=== PATIENT | female | born 1990 | race Caucasian/White ===

== ENCOUNTER 2018-12-31 09:32 | Inpatient (IN) | payer OTHER ==
[2018-12-30 14:34] LABS: RPR Titer ND
[2018-12-30 14:38] LABS: Urine Appearance CLEAR; Urine Bilirubin NEGATIVE (NEG); Urine Blood NEGATIVE (NEG); Urine Color YELLOW; Urine Glucose NEGATIVE (NEG); Urine Protein NEGATIVE (NEG)
[2018-12-30 14:47] LABS: Absolute Lymphocytes (CBC) 1.6 K/uL (0.7-4.9); Absolute Monocytes 0.6 K/uL (0.1-1.3); Absolute Neutrophil 7.4 K/uL (1.8-8.0); Basophils % 0.1 % (0-1.3); Eosinophils % 0.7 % (0-4.4); Hematocrit 36.4 % (36.0-45.0); Lymphocytes % 16.9 % (15.3-44.8); MPV 9.6 fL (7.6-11.3); Monocytes % 5.9 % (3.3-12.3); RBC Red Blood Cell Count 4.17 M/uL (3.86-4.86)
[2018-12-30 15:08] LABS: BUN Blood Urea Nitrogen 4 mg/dL (7-18); Bicarbonate 23 mmol/L (21-32); Glucose Level 88 mg/dL (74-106); Potassium 3.6 mmol/L (3.5-5.1); Sodium Level 141 mmol/L (136-145)
[2018-12-30 16:09] LABS: Urine Amorphous Sediment 1+ /HPF (NONE SEEN); Urine Bacteria 20-50 /HPF (<20); Urine Culture Reflex Order REFLEXED; Urine RBC <5 /HPF (NONE SEEN)
--- NOTE | 2018-12-30 21:12 | P.OBGYNHP ---
Certification for Inpatient Patient admitted to: Inpatient With expected LOS: >2 Midnights Patient will require the following post-hospital care: None Practitioner: I am a practitioner with admitting privileges, knowledge of patient current condition, hospital course, and medical plan of care. Services: Services provided to patient in accordance with Admission requirements found in Title 42 Section 412.3 of the Code of Federal Regulations Patient History Date of Service: 01/03/19 Reason for admission: Primary section due to breech presentation History of Present Illness: Patient is a 28 y/o who presents at 39 weeks gestation for scheduled primary section due to breech presentation. Patient has obtained care beginning at 9 weeks gestation. care has been complicated by a h/o preeclampsia in prior and a h/o of bariatic surgery. Patient has been consulted by SUDARSHAN in this . Recommendations were to continue to 39 weeks gestation. Last ultrasound was done here at [facility] on 12/13/17 - breech presentation, EFW 5 lb 11 oz, NUPUR 17cm, anterior placenta. I again did an ultrasound on the patient in the office at her pre-op visit to confirm breech presentation prior to scheduling surgery. See record for further information. Allergies No Known Allergies Allergy (Verified 06/15/16 10:48) Home Medications: Ferrous Sulfate [Iron] 325 mg PO DAILY 08/14/16 Pnv Cmb#95/Ferrous Fumarate/FA [ Tablet] 1 each PO DAILY 08/14/16 Codeine/APAP [Tylenol W/Codeine #3 tab] 1 tab PO Q6HP PRN #24 tab 01/02/19 - Past Medical/Surgical History Diabetic: No -: Tonsillectomy -: Gastric Bypass - Family History Father -: Hypertension Mother -: Diabetes - Social History Alcohol use: No CD- Drugs: No Caffeine use: No Review of Systems 10-point ROS is otherwise unremarkable Physical Examination - Vital Signs Temperature: 98.0 F Blood Pressure: 110/81 Pulse: 89 Respirations: 18 Pulse Ox (%): 100 - General General: Alert and in no apparent distress HEENT: Atraumatic Neck: Supple Respiratory: Normal air movement Cardiovascular: No edema Breasts: Normal configuration, Normal contours Gastrointestinal: Other (obese, gravid) Musculoskeletal: No clubbing, No swelling Integumentary: No rashes, No breakdown Neurological: Normal gait, Normal speech - Female Pelvic External genitalia: Normal, No lesions, No masses Vagina: Normal, [place], Moist Uterus: Gravid Adnexa: Unable to evaluate - Obstetrics heart rate tracing: Category 2 Amniotic membrane: Intact Laboratory Data (last 24 hrs) 12/30/18 14:18: Sodium 141, Potassium 3.6, BUN 4 L, Creatinine 0.46 L, Glucose 88 12/30/18 14:18: WBC 9.7, Hgb 12.1, Hct 36.4, Plt Count 257 Assessment and Plan - Plan Patient is a 28 y/o who presents at 39 weeks gestation for scheduled primary section due to breech presentation. Routine preoperative medications given to the patient. Following surgery routine postoperative orders will be placed. Patient be placed on a clear liquid diet and advance to regular as tolerated. Veras catheter will be kept in place for 12 hr. CBC tomorrow morning. Pain management will be provided. - Advance Directives Does patient have a Living Will: No Does patient have a Durable POA for Healthcare: No
[~2018-12-31 09:32] MED LIST: CEFAZOLIN/SWI 2gm 2 GM/20 ML SYR IVP SCH
[2018-12-31] MEDS ORDERED: Ringers Lactate 1,000 ML IV PRN (09:33)
[2018-12-31] MEDS ORDERED: FAMOTIDINE 20 MG/2 ML VIAL IV ONE (09:34)
[2018-12-31] MEDS ORDERED: NA CIT/CITRIC AC 30 ML ORAL UDC PO ONE (09:34)
--- OUTSIDE RECORDS SUMMARY | 2018-12-31 09:37 | XMS REPORT ---
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
--- OUTSIDE RECORDS SUMMARY | 2018-12-31 09:37 | XMS REPORT ---
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843 Active complicating , third trimester Problem Bariatric surgery status O99.842 Active complicating , second trimester Problem Supervision of high risk O09.92 Active in second trimester Problem Other specified bacterial agents B96.89 Active as the cause of diseases classified elsewhere Problem Acute vaginitis N76.0 Active Medications Medication Code Code Instructions Start End Status Dosage System Date Date Flagyl [facility] 28552980119 500 MG Orally June 13, Active 1 tablet every 12 hours 2018 Aspir-81 [facility] 13974921761 81 MG Orally Active 1 tablet Once a day Vitamin D [facility] 58445419354 1000 UNIT Orally Active 1 tablet Once a day NDC 0 Active not Multivit-Iron defined Results Name Result Date Reference Range Unit Abnormality Flag CBC with Automated Diff ----Basophils % 0.4 [id number] 0-1.3 % ----Eosinophils % 1.4 74749655 0-4.4 % ----Absolute Lymphocytes (CBC) 1.5 [id number] 0.7-4.9 ----Absolute Neutrophil 7.1 60452102 1.8-8.0 ----Red Cell Distribution 13.4 11962835 12.1-15.2 % Width ----Absolute Eosinophils 0.1 18049172 0-0.5 ----Platelets 246 57936645 152-406 ----Absolute Monocytes 0.7 10430724 0.1-1.3 ----MCHC 35.4 33743074 32.0-36.0 g/dL ----MCH 30.8 58803027 27.0-35.0 pg ----MCV 87.1 56973112 80-100 fL ----Neutrophils % 74.8 32651473 41.7-73.7 % H ----MPV 9.1 94328860 7.6-11.3 fL ----Monocytes % 7.7 91553402 3.3-12.3 % ----Lymphocytes % 15.7 52411672 15.3-44.8 % ----Absolute Basophils 0.0 73685918 0-0.5 ----White Blood Count 9.5 48122880 4.3-10.9 ----RBC Red Blood Cell Count 3.84 55895124 3.86-4.86 M/ul L ----Hemoglobin 11.8 32804704 12.0-15.0 g/dL L ----Hematocrit 33.5 19748565 36.0-45.0 % L Uric Acid ----Uric Acid 2.7 46037400 2.6-6.0 mg/dL Summary Purpose eClinicalWorks Submission
--- OUTSIDE RECORDS SUMMARY | 2018-12-31 09:37 | XMS REPORT ---
:1990 Author Organization eClinicalWorks Care Team Providers Name Role Phone Jonathan Julian Provider Role Unavailable Allergies No Known Allergies Problems Problem Type Condition Code Onset Dates Condition Status Problem Acute vaginitis N76.0 Active Problem Other specified bacterial agents as B96.89 Active the cause of diseases classified elsewhere Assessment Other specified bacterial agents as B96.89 Active the cause of diseases classified elsewhere Assessment Acute vaginitis N76.0 Active Medications Medication Code System Code Instructions Start Date End Date Status Dosage Flagyl [facility] 52786811831 500 MG Orally June 13, Active 1 tablet every 12 hours 2017 Results No Known Results Summary Purpose eClinicalWorks Submission
--- OUTSIDE RECORDS SUMMARY | 2018-12-31 09:37 | XMS REPORT | Continuity of Care Document ---
:1990 Author Organization Interface Problems Problem Status Onset Classification Date Comments Source Date Reported K21.9=GASTR Active [facility] O-ESOPHAGEA 7 L REFLUX DISEASE Medications Medication Details Route Status Patient Ordering Order Source Instructions Provider Date Allergies, Adverse Reactions, Alerts Substance Category Reaction Severity Reaction Status Date Comments Source type Reported Immunizations Immunization Date Given Site Status Last Updated Comments Source Results Order Name Results Value Reference Date Interpretation Comments Source Range URINE CHEM U Preg Negative Negative 03/01 [facility] (03/01/17 1:00 PM) Barium Barium EXAM: Esophagram 03/01 - Swallow w Swallow [facility] Esophagus Esophagus HISTORY: Gastric lap band evaluation Function Function DX DX COMPARISON: None Read by: Cory Wilson MD Dictated Date/time: 03/01/17 17:05 TECHNIQUE: The patient ingested effervescent crystals and barium without difficulty. Fluoroscopy time 1.3 minutes. DAP 24 Electronically Signed by: Cory Wilson MD 03/01/17 17:09 FINAL REPORT FINDINGS: The gastric lap band is in normal position. The gastric stoma demonstrates normal caliber. Contrast opacifies the esophagus, gastric pouch and remainder of the stomach in a normal manner. IMPRESSION: Unremarkable esophagram and gastric lap band. SL: [id number] Vital Signs Vital Sign Value Date Comments Source Encounters Location Location Encounter Encounter Reason Attending ADM DC Status Source Details Type Number For Provider Date Date Visit [facility] Outpatient [id number] Cj 03/01 03/02 David Smalls /[address] [facility] Procedures Procedure Code Date Perfomer Comments Source
--- OUTSIDE RECORDS SUMMARY | 2018-12-31 09:37 | XMS REPORT ---
[...] Start End Status Dosage System Date Date [facility] 59490588122 81 MG Orally Active 1 tablet Once a day Flagyl [facility] 95583440711 500 MG Orally June 13, Active 1 tablet every 12 hours 2018 NDC 0 Active not Multivit-Iron defined Vitamin D [facility] 39437751620 1000 UNIT Orally Active 1 tablet Once a day Results No Known Results Summary Purpose eClinicalWorks Submission
--- OUTSIDE RECORDS SUMMARY | 2018-12-31 09:37 | XMS REPORT ---
:1990 Author Organization eClinicalWorks Care Team Providers Name Role Phone Jonathan Julian Provider Role Unavailable Allergies, Adverse Reactions, Alerts Substance Reaction Event Type N.K.D.A. 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 17923475294 500 MG Orally June 13, Active 1 tablet every 12 hours [address] [facility] 32055397474 1000 UNIT Orally Active 1 tablet Once a day Results No Known Results Summary Purpose eClinicalWorks Submission
--- OUTSIDE RECORDS SUMMARY | 2018-12-31 09:37 | XMS REPORT ---
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 Active in first trimester, antepartum Problem Supervision of high risk O09.91 Active in first trimester Assessment Need for Tdap vaccination Z23 Active Assessment Small for gestational age fetus O36.5930 [...] Start End Status Dosage System Date Date [facility] 48213840252 81 MG Orally Active 1 tablet Once a day NDC 0 Active not Multivit-Iron defined Flagyl [facility] 01636522158 500 MG Orally June 13, Active 1 tablet every 12 hours 2018 Vitamin D [facility] 03831383143 1000 UNIT Orally Active 1 tablet Once a day Results Name Result Date Reference Range Unit Abnormality Flag OB Complete Immunizations Vaccine Administration Date TDAP > 7 Years-Adacel Dec 03, 2018 Summary Purpose eClinicalWorks Submission
--- OUTSIDE RECORDS SUMMARY | 2018-12-31 09:37 | XMS REPORT ---
:1990 Author Organization eClinicalWorks Care Team Providers Name Role Phone Jonathan Julian Provider Role Unavailable Allergies, Adverse Reactions, Alerts Substance Reaction Event Type N.K.D.A. 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 33460461525 1000 UNIT Orally Active 1 tablet Once a day Results Name Result Date Reference Range Unit Abnormality Flag SURESWAB(R) CHLAMYDIA/ N. GONORRHOEAE RNA, TMA Antibody Screen ----Antibody Screen NEGATIVE [id number] Varicella IgG Summary Purpose eClinicalWorks Submission
--- OUTSIDE RECORDS SUMMARY | 2018-12-31 09:38 | XMS REPORT ---
:1990 Author Organization eClinicalWorks Care Team Providers Name Role Phone ElielJonathan Provider Role Unavailable Allergies No Known Allergies [...] O36.5930 Active affecting management of mother in ordriguez in third trimester Problem Bariatric surgery status [...] Start End Status Dosage System Date Date [facility] 41461068689 81 MG Orally Active 1 tablet Once a day Flagyl [facility] 87761305786 500 MG Orally June 13, Active 1 tablet every 12 hours 2018 NDC 0 Active not Multivit-Iron defined Vitamin D [facility] 58496600435 1000 UNIT Orally Active 1 tablet Once a day Results No Known Results Summary Purpose eClinicalWorks Submission
--- OUTSIDE RECORDS SUMMARY | 2018-12-31 09:38 | XMS REPORT ---
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 Active in first trimester, antepartum Assessment Supervision of high risk O09.93 Active in third trimester Problem Small for gestational age fetus O36.5930 Active affecting management of mother in rodriguez in third trimester Problem Bariatric surgery status O99.843 Active complicating , third trimester Problem Breech presentation, single or O32.1XX0 Active unspecified fetus Problem Acute vaginitis N76.0 Active Problem Bariatric surgery status O99.842 Active complicating , second trimester Problem Supervision of high risk O09.93 Active in third trimester Problem Other specified bacterial agents B96.89 Active as the cause of diseases classified elsewhere Medications No Known Medications Results No Known Results Summary Purpose eClinicalWorks Submission
[2018-12-31 09:57] VITALS: BMI 39.2
[2018-12-31] MEDS ORDERED: METOCLOPRAMIDE 10 MG/2mL INJ IV SCH (10:00)
[2018-12-31] MEDS ORDERED: Ringers Lactate 1,000 ML IV SCH ×2 (10:00→21:00)
[2018-12-31] MEDS ORDERED: CARBOPROST TROME 250 MCG/ML IM ONE (10:28)
[2018-12-31] MEDS ORDERED: CEFAZOLIN/SWI 2gm 2 GM/20 ML SYR ONE (10:28)
[2018-12-31] MEDS ORDERED: METHYLERGONOVINE 0.2MG/ML AMP IM ONE (10:29)
--- NOTE | 2018-12-31 10:31 | RAD REPORT ---
EXAM DESCRIPTION: US - OB Limited - 12/31/2018 10:00 am CLINICAL HISTORY: presentation age. COMPARISON: OB Complete dated 12/13/2018 FINDINGS: Examination was limited to only presentation if assessment. presentation is br eech with head to maternal right/fundus.
[2018-12-31] MEDS ORDERED: EPHEDRINE SULF 50 MG/ML VIAL ONE ×2 (11:40→12:01)
[2018-12-31] MEDS ORDERED: MORPHINE SULFATE/PF 1 MG/ML (10 ML AMP) ONE (11:40)
[2018-12-31] MEDS ORDERED: OXYTOCIN 10 UNIT/ML ML IV ONE ×2 (11:41)
[2018-12-31] MEDS ORDERED: MIDAZOLAM HCL 2 MG/2 ML INJ ONE (12:21)
[2018-12-31] MEDS ORDERED: OXYTOCIN/LR 20 UNIT/1,000 ML BAG IV ONE (13:05)
[2018-12-31] MEDS ORDERED: PROMETHAZINE 25 MG/ML VIAL IV PRN (13:17)
[2018-12-31] MEDS ORDERED: BISACODYL 10 MG RECTAL SUPP RECT PRN (14:32)
[2018-12-31] MEDS ORDERED: DOCUSATE NA/SENNA CONC 1 TAB PO PRN (14:32)
[2018-12-31] MEDS ORDERED: ACETAMINOPHEN 500 MG TAB PO PRN (14:32)
[2018-12-31] MEDS ORDERED: ONDANSETRON 4 MG (ODT) TAB PO PRN (14:32)
[2018-12-31] MEDS ORDERED: METHYLERGONOVINE 0.2 MG TAB PO PRN (14:32)
[2018-12-31] MEDS ORDERED: Oxycodone HCl/Acetaminophen 1 TAB TAB PO PRN (14:32)
[2018-12-31] MEDS ORDERED: Ringers Lactate 1,000 ML IV ONE (18:07)
[2018-12-31] MEDS ORDERED: Ringers Lactate 2,000 ML IV ONE (18:07)
[2018-12-31] MEDS: KETOROLAC 30 MG/ML INJ IV PRN (20:35)
--- NOTE | 2018-12-31 20:51 | P.OP ---
Landscape Painter: Robert Urbina Preoperative diagnosis: Term , Breech presentation Postoperative diagnosis: same Primary procedure: Primary low transverse section Secondary procedure: none Anesthesia: Spinal Estimated blood loss: 800cc Specimen: Cord blood, placenta Findings: female, lam breech, 9/9, Weight 6 lb 2 oz Operative Technique: Indications: Primary section due to breech presentation at 39 weeks gestation. Findings: Female , lam breech presentation. Weight was found to be 6 lb 2 oz. Apgars were 9 and 9. Normal uterus tubes and ovaries. Procedure: The patient was taking to the operating room where spinal anesthesia was found be adequate. She was then prepped and draped in a normal sterile fashion in the dorsal supine position with a leftward tilt. A Pfannenstiel skin incision was then made with a scalpel carried down to the underlying layer fashion with the scalpel. The fascia was incised in the midline and the incision extended laterally with the Hooks scissors. Superior aspect of the vaginal incision was then grasped with the Bruce clamps, elevated and the rectus muscles dissected off bluntly. Attention was then turned to the inferior aspect of the incision, which in a similar fashion, was grasped, tented up with Bruce clamps and the rectus muscles dissected off bluntly. The rectus muscles were then in the midline and the peritoneum identified and grabbed with a Alicia clamp. Peritoneum was then incised with a Metzenbaum scissors and entered. Peritoneal incision was then extended with manual traction. The bladder blade was then inserted and the vesicouterine peritoneum identified, grasped with the pickups and then entered sharply with the Metzenbaum scissors. This incision was then extended laterally and a bladder flap created digitally. The bladder blade was then reinserted and the lower uterine segment incised in a transverse fashion with the scalpel. Uterine incision was then extended laterally with manual traction. Bladder blade was removed. The 's feet were then delivered through the incision. The infant was then delivered up to the level of the scapula at which point a blue towel was wrapped around the . The infant's arms were then swept across the anterior abdomen. Then the head was delivered with gentle traction. The nose and mouth were then suctioned with a suction bulb. The infant was then handed off to waiting nursery nurse. Cord blood was obtained. The placenta was then removed with gentle traction and the uterus exteriorized and cleared of all clots and debris. Uterine incision was repaired with 010 Vicryl in a running locked fashion. A 2nd layer of the same suture was used for imbrication. There was bleeding noted at the right angle of the uterine incision this was repaired and hemostasis was noted. Bladder flap was then repaired with a 3 O Vicryl in a running fashion. The gutters were cleared of all clots and debris. Uterus was then returned to the abdomen. The rectus muscles were reapproximated with 0 Vicryl. The fascia was reached reapproximated with a running 1 Vicryl. Subcutaneous layer was reapproximated with 2 0 plain gut. The skin was then reapproximated with 3 O Vicryl on a Marcell needle. The patient tolerated the procedure well sponge lap and needle counts were correct x2. 2 g of Ancef were given prior to the incision. The patient was taken to her room in stable condition. Complications: None Drain(s): Urinary catheter Transferred to: Recovery Room Condition: Good
[2019-01-01 01:11] LABS: RPR (Rapid Plasma Reagin) NON-REACT (NON-REACT)
[2019-01-01] MEDS: KETOROLAC 30 MG/ML INJ IV PRN (04:36)
[2019-01-01 04:56] LABS: Absolute Lymphocytes (CBC) 1.2 K/uL (0.7-4.9); Absolute Monocytes 0.9 K/uL (0.1-1.3); Absolute Neutrophil 7.6 K/uL (1.8-8.0); Basophils % 0.3 % (0-1.3); Eosinophils % 0.4 % (0-4.4); Hematocrit 30.6 % (36.0-45.0); MPV 9.6 fL (7.6-11.3); Monocytes % 9.3 % (3.3-12.3); RBC Red Blood Cell Count 3.54 M/uL (3.86-4.86)
[2019-01-01] MEDS: Oxycodone HCl/Acetaminophen 1 TAB TAB PO PRN ×3 (12:18→21:12)
[2019-01-01] MEDS: IBUPROFEN 200 MG TAB PO PRN (20:22)
[2019-01-02] MEDS: Oxycodone HCl/Acetaminophen 1 TAB TAB PO PRN (05:36)
[2019-01-02] MEDS: IBUPROFEN 200 MG TAB PO PRN (10:50)
[2019-01-03 10:39] VITALS: BP 110/81; TEMP 98
--- NOTE | 2019-01-03 10:40 | P.PN ---
Date of Service: 01/01/19 The patient is postop day 1 from a primary section due to breech presentation. She is doing well. She is tolerating diet. Her pain is well controlled. She is afebrile. She has no complaints today she is bonding well with the baby and is breast-feeding. Vital sign stable Selected Entries 01/01/19 01/01/19 08:00 12:00 Temperature 97.9 F Pulse Rate 88 Respiratory 18 Rate Blood Pressure 120/80 Pain Level 0 3 Laboratory Tests 12/30/18 01/01/19 14:18 04:16 WBC 9.7 9.7 Hgb 12.1 10.6 L Hct 36.4 30.6 L D Plt Count 257 228 General: Resting in bed no distress Head and neck: Normocephalic atraumatic, supple Respiratory: Symmetric nonlabored breathing Abdomen: Soft, mildly distended, mildly tender. Incision clean dry and intact Bilateral lower extremities: No clubbing cyanosis or edema. Assessment and plan patient is postop day 1 after repeat section she is doing well. Pain is well controlled. Discontinue IV discontinue Veras catheter. Encourage patient to ambulate. Possible discharge home tomorrow.
--- NOTE | 2019-01-03 10:43 | P.DS ---
Admission Date: 12/31/18 Discharge Date: 01/02/19 Disposition: ROUTINE DISCHARGE Discharge Condition: GOOD Reason for Admission: Primary section due to breech presentation Brief History of Present Illness: Patient is a 28 y/o who presents at 39 weeks gestation for scheduled primary section due to breech presentation. Patient has obtained care beginning at 9 weeks gestation. care has been complicated by a h/o preeclampsia in prior and a h/o of bariatic surgery. Patient has been consulted by SUDARSHAN in this . Recommendations were to continue to 39 weeks gestation. Last ultrasound was done here at [facility] on 12/13/17 - breech presentation, EFW 5 lb 11 oz, NUPUR 17cm, anterior placenta. I again did an ultrasound on the patient in the office at her pre-op visit to confirm breech presentation prior to scheduling surgery. See record for further information. Hospital Course: The patient did well following delivery of the . She has been bonding well with baby. Her pain has been well controlled. She is ambulating without difficulty. She is voiding well. She denies fever chills. She is passing gas. She is tolerating a regular diet. She is breast-feeding. She is also using the pump to help stimulate breast milk production. She has no issues. Tylenol 3 prescription provided to the patient. Vital Signs/Physical Exam: Temp Pulse Resp BP Pulse Ox 98.0 F 89 18 110/81 100 01/03/19 10:38 01/03/19 10:38 01/03/19 10:38 01/03/19 10:38 01/03/19 10:38 General: Alert, In no apparent distress HEENT: Atraumatic Neck: Supple Respiratory: Normal air movement Cardiovascular: Normal pulses, Edema (Mild bilateral lower extremities) Gastrointestinal: Other (Incision clean dry and intact) Musculoskeletal: No clubbing, No swelling Integumentary: No rashes Neurological: Normal gait, Normal speech Laboratory Data at Discharge: WBC 9.7 K/uL (4.3-10.9) 01/01/19 04:16 Hgb 10.6 g/dL (12.0-15.0) L 01/01/19 04:16 Hct 30.6 % (36.0-45.0) L D 01/01/19 04:16 Plt Count 228 K/uL (152-406) 01/01/19 04:16 Sodium 141 mmol/L (136-145) 12/30/18 14:18 Potassium 3.6 mmol/L (3.5-5.1) 12/30/18 14:18 BUN 4 mg/dL (7-18) L 12/30/18 14:18 Creatinine 0.46 mg/dL (0.55-1.3) L 12/30/18 14:18 Glucose 88 mg/dL (74-106) 12/30/18 14:18 Home Medications: Ferrous Sulfate [Iron] 325 mg PO DAILY 08/14/16 Pnv Cmb#95/Ferrous Fumarate/FA [ Tablet] 1 each PO DAILY 08/14/16 Codeine/APAP [Tylenol W/Codeine #3 tab] 1 tab PO Q6HP PRN #24 tab 01/02/19 New Medications: Codeine/APAP [Tylenol W/Codeine #3 tab] 1 tab PO Q6HP PRN #24 tab PRN Reason: Pain Diet: Regular Activity: No lifting more than 10 lbs Followup: Jonathan Julian, [ACTIVE - CAN ADMIT] -
[2019-01-03 14:02] LABS: HBsAG Nonreactive (Nonreactive)
== END 2019-01-02 11:10 | disposition home or self-care (01) | DRG 788 ==
LOC: 2ND-WC 09:32
PROVIDERS: ADMIT Student in an Organized Health Care Education/Training Program; ATTEND Student in an Organized Health Care Education/Training Program
PROC: 10D00Z1 Extraction of Products of Conception, Low, Open Approach (ICD-10-PCS; principal; 2018-12-31 11:30)
DX: O32.1XX0 Maternal care for breech presentation, not applicable or unspecified (principal); O75.82 Onset (spontaneous) of labor after 37 completed weeks of gestation but before 39 completed weeks gestation, with delivery by (planned) cesarean section; Z3A.39 39 weeks gestation of pregnancy; Z37.0 Single live birth
CPT/HCPCS: 36415; 76815; 80048; 81001; 85025; 86592; 86850; 86900; 86901; 87086; 87088; 87340; 88307; G0433; J0690; J2210; J2250; J2550; J2590; J2765